=== PATIENT | female | born 1945 | race Caucasian/White ===

== ENCOUNTER 2020-12-12 19:19 | Inpatient (IN) ==
[2020-12-12] MEDS ORDERED: ONDANSETRON 4 MG/2 ML VIAL IV STA (20:04)
[2020-12-12] MEDS ORDERED: HYDROmorphone 2 MG/1 ML VIAL IV STA (20:04)
[2020-12-12] MEDS ORDERED: METHOCARBAMOL 1,000 MG/10 ML VIAL IV STA (20:05)
[2020-12-12] MEDS ORDERED: GLUCAGON 1 MG VIAL IM PRN (20:29)
[2020-12-12] MEDS ORDERED: DEXTROSE 50% 25 GM/50 ML VIAL IV PRN (20:29)
[2020-12-12] MEDS ORDERED: SIMETHICONE CHEW 125 MG TABLET PO PRN (20:29)
[2020-12-12 20:38] LABS: Basophils % 0.4 % (0.0-0.8); Eosinophils % 0.2 % (0.00-10.9); Hematocrit 35.3 VOL% (35.7-47.0); Hemoglobin 11.4 GM/DL (12.0-16.0); Immature Granulocytes % 0.6 %; Immature Granulocytes Absolute 0.06 #; Lymphocytes # 0.8 10*3/uL (1.4-4.0); Lymphocytes % 8.4 % (21.3-54.2); Mean Corpuscular HGB Conc 32.3 GM/DL (32-36); Mean Corpuscular Volume 100.9 FL (87-102); Mean Platelet Volume 9.1 FL (9.6-12.0); Monocytes % 6.3 % (1.7-12.7); Neutrophils % 84.1 % (38.7-73.9); Platelet Count 153 T/CUMM (130-400); Red Cell Distribution Width 14.2 % (9.3-17.3)
[2020-12-12 20:47] LABS: INR 1.2; PT Patient Result 12.9 SECS (10.5-12.0)
[2020-12-12 21:00] LABS: Albumin 3.4 G/DL (3.4-5.0); Bilirubin,Total 0.5 MG/DL (0.20-1.00); Calcium 8.8 MG/DL (8.5-10.1); Osmolality,Calculated 282.5 MOS/KG (273-304); Potassium 3.9 MMOL/L (3.5-5.1)
[2020-12-12] MEDS: INSULIN REGULAR 100 UNIT/ML SUBCUT SCH (23:30)
[2020-12-13 01:07] LABS: Basophils # 0.1 10*3/uL (0.0-0.2); Basophils % 0.5 % (0.0-0.8); Eosinophils % 0.2 % (0.00-10.9); Hematocrit 35.8 VOL% (35.7-47.0); Hemoglobin 11.1 GM/DL (12.0-16.0); Immature Granulocytes % 0.5 %; Immature Granulocytes Absolute 0.05 #; Lymphocytes # 1.5 10*3/uL (1.4-4.0); Lymphocytes % 14.9 % (21.3-54.2); Mean Corpuscular Volume 104.1 FL (87-102); Monocytes % 10.2 % (1.7-12.7); Neutrophils % 73.7 % (38.7-73.9); Platelet Count 177 T/CUMM (130-400); Red Blood Count 3.44 MC/CUMM (3.8-5.5); Red Cell Distribution Width 14.4 % (9.3-17.3); White Blood Count 9.8 T/CUMM (4-12)
[2020-12-13 01:29] LABS: Osmolality,Calculated 282.7 MOS/KG (273-304); Potassium 4.5 MMOL/L (3.5-5.1); Risk Ratio 2.34; VLDL Cholesterol 15.6 MG/DL
[2020-12-13] MEDS: HYDROmorphone 2 MG/1 ML VIAL IV PRN ×4 (06:18→23:03)
[2020-12-13] MEDS ORDERED: SODIUM CHLORIDE 0.9% 1,000 ML IV SCH (06:30)
[2020-12-13] MEDS: ENOXAPARIN 40 MG/0.4 ML SYRINGE SUBCUT SCH (07:03)
[2020-12-13] MEDS: ASPIRIN EC 81 MG TABLET PO SCH (08:51)
[2020-12-13] MEDS: PANTOPRAZOLE 40 MG TABLET PO SCH (08:51)
[2020-12-13] MEDS: DILTIAZEM CD 120 MG CAPSULE PO SCH (08:51)
[2020-12-13] MEDS: INSULIN REGULAR 100 UNIT/ML SUBCUT SCH ×4 (08:52→23:11)
[2020-12-13] MEDS ORDERED: LOSARTAN/HCTZ 50-12.5 MG TABLET PO SCH (09:00)
[2020-12-13] MEDS ORDERED: LOSARTAN 50 MG TABLET PO SCH (09:00)
[2020-12-13] MEDS ORDERED: VALSARTAN 160 MG TABLET PO SCH (09:00)
[2020-12-13] MEDS ORDERED: EZETIMIBE 10 MG TABLET PO SCH (09:00)
[2020-12-13] MEDS ORDERED: hydroCHLOROthiazide 12.5 MG CAPSULE PO SCH (09:00)
[2020-12-13] MEDS: LACTATED RINGERS 1,000 ML IV SCH ×2 (13:26→17:26)
[2020-12-13] MEDS: GABAPENTIN 100 MG CAPSULE PO SCH (23:02)
[2020-12-13] MEDS: ROSUVASTATIN 20 MG TABLET PO SCH (23:02)
[2020-12-14] MEDS: LACTATED RINGERS 1,000 ML IV SCH ×3 (04:00→17:44)
[2020-12-14] MEDS: ENOXAPARIN 40 MG/0.4 ML SYRINGE SUBCUT SCH (06:37)
[2020-12-14 07:14] LABS: Basophils % 0.5 % (0.0-0.8); Eosinophils # 0.3 10*3/uL (0.0-0.87); Eosinophils % 4.3 % (0.00-10.9); Hematocrit 27.2 VOL% (35.7-47.0); Hemoglobin 8.5 GM/DL (12.0-16.0); Immature Granulocytes % 0.3 %; Immature Granulocytes Absolute 0.02 #; Lymphocytes # 1.8 10*3/uL (1.4-4.0); Lymphocytes % 28.5 % (21.3-54.2); Mean Corpuscular HGB Conc 31.3 GM/DL (32-36); Mean Corpuscular Volume 102.6 FL (87-102); Mean Platelet Volume 9.5 FL (9.6-12.0); Monocytes % 13.1 % (1.7-12.7); Neutrophils % 53.3 % (38.7-73.9); Platelet Count 129 T/CUMM (130-400); Red Blood Count 2.65 MC/CUMM (3.8-5.5); Red Cell Distribution Width 14.5 % (9.3-17.3); White Blood Count 6.3 T/CUMM (4-12)
[2020-12-14 07:43] LABS: Calcium 7.9 MG/DL (8.5-10.1); Osmolality,Calculated 275.1 MOS/KG (273-304); Potassium 3.7 MMOL/L (3.5-5.1)
[2020-12-14] MEDS: INSULIN REGULAR 100 UNIT/ML SUBCUT SCH ×4 (08:30→22:35)
[2020-12-14] MEDS ORDERED: ESCITALOPRAM 10 MG TABLET PO SCH (09:00)
[2020-12-14] MEDS: AZITHROMYCIN 250 MG TABLET PO SCH (09:06)
[2020-12-14] MEDS: FOLIC ACID 1 MG TABLET PO SCH (09:06)
[2020-12-14] MEDS: HYDROmorphone 2 MG/1 ML VIAL IV PRN ×3 (09:06→20:47)
[2020-12-14] MEDS: cefTRIAXone 1,000 MG in SODIUM CHLORIDE 0.9% 100 ML IV SCH (09:06)
[2020-12-14] MEDS: GABAPENTIN 100 MG CAPSULE PO SCH ×2 (09:06→20:37)
[2020-12-14] MEDS: PANTOPRAZOLE 40 MG TABLET PO SCH (09:06)
[2020-12-14] MEDS: DILTIAZEM CD 120 MG CAPSULE PO SCH (09:06)
[2020-12-14] MEDS: ASPIRIN EC 81 MG TABLET PO SCH (09:06)
[2020-12-14] MEDS: ROSUVASTATIN 20 MG TABLET PO SCH (20:37)
[2020-12-14] MEDS: ONDANSETRON 4 MG/2 ML VIAL IV PRN (20:48)
[2020-12-15] MEDS ORDERED: ALBUTEROL/IPRATROPIUM 3 ML NEB RESP TX PRN (02:57)
[2020-12-15] MEDS: HYDROmorphone 2 MG/1 ML VIAL IV PRN (05:08)
[2020-12-15] MEDS: ONDANSETRON 4 MG/2 ML VIAL IV PRN (05:08)
[2020-12-15 06:15] LABS: Basophils % 0.4 % (0.0-0.8); Eosinophils # 0.3 10*3/uL (0.0-0.87); Eosinophils % 6.7 % (0.00-10.9); Hematocrit 25.8 VOL% (35.7-47.0); Hemoglobin 8.3 GM/DL (12.0-16.0); Immature Granulocytes % 0.2 %; Immature Granulocytes Absolute 0.01 #; Lymphocytes # 1.2 10*3/uL (1.4-4.0); Lymphocytes % 26.4 % (21.3-54.2); Mean Corpuscular HGB Conc 32.2 GM/DL (32-36); Mean Corpuscular Volume 101.2 FL (87-102); Mean Platelet Volume 9.1 FL (9.6-12.0); Monocytes % 13.2 % (1.7-12.7); Neutrophils % 53.1 % (38.7-73.9); Platelet Count 117 T/CUMM (130-400); Red Blood Count 2.55 MC/CUMM (3.8-5.5); Red Cell Distribution Width 13.9 % (9.3-17.3); White Blood Count 4.6 T/CUMM (4-12)
[2020-12-15 07:32] LABS: Calcium 8.5 MG/DL (8.5-10.1); Osmolality,Calculated 278.7 MOS/KG (273-304)
[2020-12-15] MEDS: INSULIN REGULAR 100 UNIT/ML SUBCUT SCH ×4 (08:36→22:02)
[2020-12-15] MEDS: LACTATED RINGERS 1,000 ML IV SCH ×2 (08:36)
[2020-12-15] MEDS: methylPREDNISolone SOD SUC 40 MG/1 ML VIAL IV SCH ×3 (08:45→20:20)
[2020-12-15] MEDS: KETOROLAC 30 MG/1 ML VIAL IV SCH ×3 (08:49→20:26)
[2020-12-15] MEDS: FOLIC ACID 1 MG TABLET PO SCH (09:41)
[2020-12-15] MEDS: AZITHROMYCIN 250 MG TABLET PO SCH ×2 (09:41→09:49)
[2020-12-15] MEDS: DILTIAZEM CD 120 MG CAPSULE PO SCH (09:41)
[2020-12-15] MEDS: GABAPENTIN 100 MG CAPSULE PO SCH ×2 (09:41→20:19)
[2020-12-15] MEDS: ASPIRIN EC 81 MG TABLET PO SCH (09:42)
[2020-12-15] MEDS: cefTRIAXone 1,000 MG in SODIUM CHLORIDE 0.9% 100 ML IV SCH (09:44)
[2020-12-15] MEDS: PANTOPRAZOLE 40 MG TABLET PO SCH (09:48)
[2020-12-15] MEDS ORDERED: HYDROmorphone 2 MG/1 ML VIAL IV PRN (12:04)
[2020-12-15] MEDS: ROSUVASTATIN 20 MG TABLET PO SCH (20:19)
[2020-12-16] MEDS: methylPREDNISolone SOD SUC 40 MG/1 ML VIAL IV SCH ×4 (02:04→20:40)
[2020-12-16] MEDS: KETOROLAC 30 MG/1 ML VIAL IV SCH ×4 (02:05→20:40)
[2020-12-16 06:29] LABS: Basophils % 0.1 % (0.0-0.8); Hematocrit 27.1 VOL% (35.7-47.0); Hemoglobin 8.9 GM/DL (12.0-16.0); Immature Granulocytes % 0.4 %; Immature Granulocytes Absolute 0.04 #; Lymphocytes # 0.7 10*3/uL (1.4-4.0); Lymphocytes % 7.2 % (21.3-54.2); Mean Corpuscular HGB Conc 32.8 GM/DL (32-36); Mean Corpuscular Volume 98.2 FL (87-102); Mean Platelet Volume 9.4 FL (9.6-12.0); Monocytes % 4.9 % (1.7-12.7); Neutrophils % 87.4 % (38.7-73.9); Platelet Count 142 T/CUMM (130-400); Red Blood Count 2.76 MC/CUMM (3.8-5.5); Red Cell Distribution Width 13.3 % (9.3-17.3)
[2020-12-16 06:45] LABS: Calcium 8.7 MG/DL (8.5-10.1); Osmolality,Calculated 282.5 MOS/KG (273-304)
[2020-12-16] MEDS: INSULIN REGULAR 100 UNIT/ML SUBCUT SCH ×4 (07:30→22:13)
[2020-12-16] MEDS: ESCITALOPRAM 10 MG TABLET PO SCH (09:39)
[2020-12-16] MEDS: DILTIAZEM CD 120 MG CAPSULE PO SCH (09:40)
[2020-12-16] MEDS: GABAPENTIN 100 MG CAPSULE PO SCH ×2 (09:40→20:40)
[2020-12-16] MEDS: AZITHROMYCIN 250 MG TABLET PO SCH ×3 (09:40→09:45)
[2020-12-16] MEDS: ASPIRIN EC 81 MG TABLET PO SCH (09:40)
[2020-12-16] MEDS: PANTOPRAZOLE 40 MG TABLET PO SCH (09:40)
[2020-12-16] MEDS: FOLIC ACID 1 MG TABLET PO SCH (09:40)
[2020-12-16] MEDS: cefTRIAXone 1,000 MG in SODIUM CHLORIDE 0.9% 100 ML IV SCH (09:45)
[2020-12-16] MEDS ORDERED: TUBERCULIN SKIN TEST 0.1 ML SYRINGE INTRADERM STA (16:29)
[2020-12-16] MEDS: ROSUVASTATIN 20 MG TABLET PO SCH (20:40)
[2020-12-17] MEDS: methylPREDNISolone SOD SUC 40 MG/1 ML VIAL IV SCH ×4 (02:14→21:06)
[2020-12-17] MEDS: KETOROLAC 30 MG/1 ML VIAL IV SCH ×4 (02:14→21:06)
[2020-12-17 04:11] LABS: Basophils % 0.1 % (0.0-0.8); Hematocrit 25.7 VOL% (35.7-47.0); Hemoglobin 8.3 GM/DL (12.0-16.0); Immature Granulocytes % 1.5 %; Immature Granulocytes Absolute 0.15 #; Lymphocytes # 0.6 10*3/uL (1.4-4.0); Mean Corpuscular HGB Conc 32.3 GM/DL (32-36); Mean Corpuscular Volume 99.2 FL (87-102); Mean Platelet Volume 9.1 FL (9.6-12.0); Monocytes % 4.7 % (1.7-12.7); Neutrophils % 87.7 % (38.7-73.9); Platelet Count 148 T/CUMM (130-400); Red Blood Count 2.59 MC/CUMM (3.8-5.5); Red Cell Distribution Width 13.7 % (9.3-17.3); White Blood Count 10.2 T/CUMM (4-12)
[2020-12-17 04:34] LABS: Calcium 8.4 MG/DL (8.5-10.1); Osmolality,Calculated 282.8 MOS/KG (273-304); Potassium 4.3 MMOL/L (3.5-5.1)
[2020-12-17] MEDS: INSULIN REGULAR 100 UNIT/ML SUBCUT SCH ×4 (09:36→21:05)
[2020-12-17] MEDS: ESCITALOPRAM 10 MG TABLET PO SCH (09:37)
[2020-12-17] MEDS: AZITHROMYCIN 250 MG TABLET PO SCH (09:37)
[2020-12-17] MEDS: GABAPENTIN 100 MG CAPSULE PO SCH ×2 (09:38→21:03)
[2020-12-17] MEDS: FOLIC ACID 1 MG TABLET PO SCH (09:38)
[2020-12-17] MEDS: ASPIRIN EC 81 MG TABLET PO SCH (09:38)
[2020-12-17] MEDS: DILTIAZEM CD 120 MG CAPSULE PO SCH (09:38)
[2020-12-17] MEDS: PANTOPRAZOLE 40 MG TABLET PO SCH (09:38)
[2020-12-17] MEDS: cefTRIAXone 1,000 MG in SODIUM CHLORIDE 0.9% 100 ML IV SCH (10:43)
[2020-12-17] MEDS: ALBUTEROL/IPRATROPIUM 3 ML NEB RESP TX SCH ×2 (16:54→20:00)
[2020-12-17] MEDS: ROSUVASTATIN 20 MG TABLET PO SCH (21:03)
[2020-12-18] MEDS: ALBUTEROL/IPRATROPIUM 3 ML NEB RESP TX SCH ×4 (01:30→20:14)
[2020-12-18] MEDS: KETOROLAC 30 MG/1 ML VIAL IV SCH (03:14)
[2020-12-18] MEDS: methylPREDNISolone SOD SUC 40 MG/1 ML VIAL IV SCH ×3 (03:14→18:16)
[2020-12-18 05:11] LABS: Basophils % 0.1 % (0.0-0.8); Hematocrit 27.4 VOL% (35.7-47.0); Hemoglobin 8.9 GM/DL (12.0-16.0); Immature Granulocytes % 2.1 %; Immature Granulocytes Absolute 0.19 #; Lymphocytes # 0.6 10*3/uL (1.4-4.0); Lymphocytes % 6.2 % (21.3-54.2); Mean Corpuscular HGB Conc 32.5 GM/DL (32-36); Mean Corpuscular Volume 98.9 FL (87-102); Mean Platelet Volume 8.9 FL (9.6-12.0); Monocytes % 5.5 % (1.7-12.7); Neutrophils % 86.1 % (38.7-73.9); Platelet Count 154 T/CUMM (130-400); Red Blood Count 2.77 MC/CUMM (3.8-5.5); Red Cell Distribution Width 13.7 % (9.3-17.3); White Blood Count 9.2 T/CUMM (4-12)
[2020-12-18 05:35] LABS: % Iron Saturation 12.5 % (18-50); Ferritin 166.6 ng/mL (8-252)
[2020-12-18 05:39] LABS: Calcium 8.4 MG/DL (8.5-10.1); Potassium 4.3 MMOL/L (3.5-5.1)
[2020-12-18] MEDS ORDERED: hydrALAZINE 20 MG/1 ML VIAL IV PRN (07:54)
[2020-12-18] MEDS: FERROUS SULFATE 325 MG TABLET PO SCH ×2 (09:58→20:54)
[2020-12-18] MEDS: ASPIRIN EC 81 MG TABLET PO SCH (09:58)
[2020-12-18] MEDS: GABAPENTIN 100 MG CAPSULE PO SCH ×2 (09:58→20:53)
[2020-12-18] MEDS: PANTOPRAZOLE 40 MG TABLET PO SCH (09:58)
[2020-12-18] MEDS: AZITHROMYCIN 250 MG TABLET PO SCH (09:58)
[2020-12-18] MEDS: ESCITALOPRAM 10 MG TABLET PO SCH (09:58)
[2020-12-18] MEDS: FOLIC ACID 1 MG TABLET PO SCH (09:59)
[2020-12-18] MEDS: amLODIPine 5 MG TABLET PO SCH (09:59)
[2020-12-18] MEDS: VALSARTAN 80 MG TABLET PO SCH (10:05)
[2020-12-18] MEDS: cefTRIAXone 1,000 MG in SODIUM CHLORIDE 0.9% 100 ML IV SCH (10:06)
[2020-12-18] MEDS: INSULIN REGULAR 100 UNIT/ML SUBCUT SCH ×4 (10:13→20:59)
[2020-12-18] MEDS ORDERED: MORPHINE 2 MG/1 ML SYRINGE IV PRN (11:58)
[2020-12-18] MEDS ORDERED: FUROSEMIDE 40 MG/4 ML VIAL IV ONE ×2 (12:21→21:00)
[2020-12-18 15:09] LABS: Bacteria,Urine Occasional /HPF (Few); Bilirubin,Urine Negative (Negative); Blood, Urine Small mg/dL (Negative); Glucose,Urine (UA) Negative (Negative); Ketones,Urine Negative (Negative); Mucus,Urine Occasional /LPF (Occasional); Nitrite,Urine Negative (Negative); Protein,Urine Negative; RBC,Urine <1 /HPF (0-4); Squamous Epithelial Cell,Urine Occasional /HPF (0-10); Transitional Epi Cells,Urine Occasional /HPF (<1); Urine Appearance CLEAR (Clear); Urine Color Colorless (Yellow); Urine Specific Gravity 1.004 (1.001-1.035); Urine Urobilinogen < 2.0 EU/DL (0.2-1.0)
[2020-12-18] MEDS ORDERED: FUROSEMIDE 40 MG/4 ML VIAL IV SCH (16:00)
[2020-12-18] MEDS: ROSUVASTATIN 20 MG TABLET PO SCH (20:54)
[2020-12-18] MEDS: ACETAMINOPHEN 325 MG TABLET PO PRN (20:57)
[2020-12-19] MEDS: ALBUTEROL/IPRATROPIUM 3 ML NEB RESP TX SCH ×4 (01:14→19:40)
[2020-12-19] MEDS: methylPREDNISolone SOD SUC 40 MG/1 ML VIAL IV SCH ×3 (04:01→17:27)
[2020-12-19 05:01] LABS: Basophils % 0.2 % (0.0-0.8); Hematocrit 28.4 VOL% (35.7-47.0); Hemoglobin 9.3 GM/DL (12.0-16.0); Immature Granulocytes % 4.1 %; Immature Granulocytes Absolute 0.35 #; Lymphocytes # 0.5 10*3/uL (1.4-4.0); Lymphocytes % 5.8 % (21.3-54.2); Mean Corpuscular HGB Conc 32.7 GM/DL (32-36); Mean Corpuscular Volume 98.6 FL (87-102); Monocytes % 8.1 % (1.7-12.7); NRBC # 0.03 10*3/uL; Neutrophils % 81.8 % (38.7-73.9); Platelet Count 170 T/CUMM (130-400); Red Blood Count 2.88 MC/CUMM (3.8-5.5); Red Cell Distribution Width 13.9 % (9.3-17.3); White Blood Count 8.6 T/CUMM (4-12)
[2020-12-19 05:31] LABS: Calcium 8.2 MG/DL (8.5-10.1); Osmolality,Calculated 288.7 MOS/KG (273-304); Potassium 3.9 MMOL/L (3.5-5.1)
[2020-12-19 07:16] LABS: Band Neutrophils 1 % (0-10); Lymphocytes 3 % (20-55); Segmented Neutrophils 89 % (50-85); Total Cells Counted 100
[2020-12-19 07:17] LABS: Macrocytosis Slight; Platelet Estimate Adequate
[2020-12-19] MEDS: AZITHROMYCIN 250 MG TABLET PO SCH (09:12)
[2020-12-19] MEDS: ESCITALOPRAM 10 MG TABLET PO SCH (09:12)
[2020-12-19] MEDS: VALSARTAN 80 MG TABLET PO SCH (09:12)
[2020-12-19] MEDS: FERROUS SULFATE 325 MG TABLET PO SCH ×2 (09:13→22:06)
[2020-12-19] MEDS: cefTRIAXone 1,000 MG in SODIUM CHLORIDE 0.9% 100 ML IV SCH (09:13)
[2020-12-19] MEDS: amLODIPine 5 MG TABLET PO SCH (09:13)
[2020-12-19] MEDS: ASPIRIN EC 81 MG TABLET PO SCH (09:13)
[2020-12-19] MEDS: FOLIC ACID 1 MG TABLET PO SCH (09:13)
[2020-12-19] MEDS: PANTOPRAZOLE 40 MG TABLET PO SCH (09:13)
[2020-12-19] MEDS: INSULIN REGULAR 100 UNIT/ML SUBCUT SCH ×4 (09:13→22:08)
[2020-12-19] MEDS: GABAPENTIN 100 MG CAPSULE PO SCH ×2 (09:13→22:06)
[2020-12-19] MEDS ORDERED: amLODIPine 5 MG TABLET PO ONE (09:56)
[2020-12-19] MEDS ORDERED: FUROSEMIDE 40 MG/4 ML VIAL IV ONE (12:07)
[2020-12-19] MEDS: POLYETHYLENE GLYCOL POWDER 17 GM PACK PO SCH (15:09)
[2020-12-19] MEDS: ROSUVASTATIN 20 MG TABLET PO SCH (22:04)
[2020-12-19] MEDS: ACETAMINOPHEN 325 MG TABLET PO PRN (22:05)
[2020-12-20] MEDS: ALBUTEROL/IPRATROPIUM 3 ML NEB RESP TX SCH ×2 (00:47→07:35)
[2020-12-20] MEDS: methylPREDNISolone SOD SUC 40 MG/1 ML VIAL IV SCH (03:49)
[2020-12-20 05:55] LABS: Basophils % 0.2 % (0.0-0.8); Hematocrit 27.9 VOL% (35.7-47.0); Hemoglobin 9.1 GM/DL (12.0-16.0); Immature Granulocytes % 5.4 %; Immature Granulocytes Absolute 0.45 #; Lymphocytes # 0.6 10*3/uL (1.4-4.0); Lymphocytes % 6.6 % (21.3-54.2); Mean Corpuscular HGB Conc 32.6 GM/DL (32-36); Mean Corpuscular Volume 98.6 FL (87-102); Monocytes % 9.7 % (1.7-12.7); NRBC # 0.04 10*3/uL; Neutrophils % 78.1 % (38.7-73.9); Platelet Count 170 T/CUMM (130-400); Red Blood Count 2.83 MC/CUMM (3.8-5.5); Red Cell Distribution Width 13.8 % (9.3-17.3); White Blood Count 8.4 T/CUMM (4-12)
[2020-12-20 06:09] LABS: Osmolality,Calculated 287.8 MOS/KG (273-304)
[2020-12-20 06:18] LABS: Lymphocytes 5 % (20-55); Nucleated Red Blood Cells 2 (0-5); Segmented Neutrophils 83 % (50-85); Total Cells Counted 100
[2020-12-20 06:19] LABS: Anisocytosis 1+; Hypochromasia 1+; Microcytosis 1+
[2020-12-20] MEDS ORDERED: TISSUE ADHESIVE 1 EACH APPLICATOR TOP ONE (07:02)
[2020-12-20] MEDS ORDERED: LIDOCAINE 1%/EPI INJ 20 ML VIAL ONE (07:02)
[2020-12-20] MEDS: GABAPENTIN 100 MG CAPSULE PO SCH (08:44)
[2020-12-20] MEDS: POLYETHYLENE GLYCOL POWDER 17 GM PACK PO SCH (08:44)
[2020-12-20] MEDS: ASPIRIN EC 81 MG TABLET PO SCH (08:44)
[2020-12-20] MEDS: FOLIC ACID 1 MG TABLET PO SCH (08:44)
[2020-12-20] MEDS: FERROUS SULFATE 325 MG TABLET PO SCH (08:44)
[2020-12-20] MEDS: PANTOPRAZOLE 40 MG TABLET PO SCH (08:44)
[2020-12-20] MEDS: cefTRIAXone 1,000 MG in SODIUM CHLORIDE 0.9% 100 ML IV SCH (08:45)
[2020-12-20] MEDS ORDERED: CHLORTHALIDONE 25 MG TABLET PO SCH (09:00)
[2020-12-20] MEDS ORDERED: amLODIPine 5 MG TABLET PO SCH (09:00)
[2020-12-20] MEDS ORDERED: VALSARTAN 80 MG TABLET PO SCH (09:00)
[2020-12-20] MEDS: ESCITALOPRAM 10 MG TABLET PO SCH (09:27)
[2020-12-20] MEDS: INSULIN REGULAR 100 UNIT/ML SUBCUT SCH (09:28)
[2020-12-20 11:37] VITALS: BP 131/75
== END 2020-12-20 12:36 | disposition swing bed (61) | DRG 982 ==
LOC: EDBD → EDUNIT# → N.ED 19:19 → N.EDINP 20:29 → SUATTDRO 20:29 → N.TELES 22:57
PROVIDERS: ADMIT Internal Medicine; ATTEND Internal Medicine

== ENCOUNTER 2021-01-21 14:10 | Observation (INO) ==
[2021-01-21 14:48] LABS: Basophils # 0.1 10*3/uL (0.0-0.2); Basophils % 1.1 % (0.0-0.8); Eosinophils # 0.1 10*3/uL (0.0-0.87); Eosinophils % 0.9 % (0.00-10.9); Hematocrit 33.9 VOL% (35.7-47.0); Hemoglobin 10.7 GM/DL (12.0-16.0); Immature Granulocytes % 0.5 %; Immature Granulocytes Absolute 0.03 #; Lymphocytes # 2.3 10*3/uL (1.4-4.0); Lymphocytes % 35.7 % (21.3-54.2); Mean Corpuscular HGB Conc 31.6 GM/DL (32-36); Mean Corpuscular Volume 101.2 FL (87-102); Mean Platelet Volume 8.2 FL (9.6-12.0); Monocytes % 12.9 % (1.7-12.7); Neutrophils % 48.9 % (38.7-73.9); Platelet Count 303 T/CUMM (130-400); Red Blood Count 3.35 MC/CUMM (3.8-5.5); White Blood Count 6.4 T/CUMM (4-12)
[2021-01-21 15:10] LABS: INR 1.1; PT Patient Result 12.4 SECS (10.5-12.0); Partial Thromboplastin Time 20.9 SECS (23.8-32.1)
[2021-01-21 15:17] LABS: Bilirubin,Total 0.4 MG/DL (0.20-1.00); Calcium 8.9 MG/DL (8.5-10.1); Osmolality,Calculated 270.7 MOS/KG (273-304); Potassium 4.4 MMOL/L (3.5-5.1)
[2021-01-21] MEDS ORDERED: DEXTROSE 50% 25 GM/50 ML VIAL IV PRN ×2 (19:27→19:36)
[2021-01-21] MEDS ORDERED: GLUCAGON 1 MG VIAL IM PRN (19:27)
[2021-01-21] MEDS ORDERED: ALBUTEROL 1.25 MG/3 ML NEB RESP TX STA (19:33)
[2021-01-21] MEDS ORDERED: SODIUM CHLORIDE 0.9% 1,000 ML IV SCH (21:00)
[2021-01-21 21:07] LABS: Hematocrit 32.3 VOL% (35.7-47.0); Hemoglobin 10.4 GM/DL (12.0-16.0)
[2021-01-21] MEDS: PANTOPRAZOLE 40 MG VIAL IV SCH (21:34)
[2021-01-21] MEDS ORDERED: INFLUENZA VIRUS VACCINE 0.5 ML SYRINGE IM ONE (22:16)
[2021-01-22] MEDS: ALBUTEROL 1.25 MG/3 ML NEB RESP TX SCH ×7 (00:36→23:50)
[2021-01-22] MEDS: INSULIN LISPRO 100 UNIT/ML SUBCUT SCH ×4 (01:54→20:03)
[2021-01-22 05:28] LABS: Basophils # 0.1 10*3/uL (0.0-0.2); Basophils % 1.2 % (0.0-0.8); Eosinophils # 0.1 10*3/uL (0.0-0.87); Eosinophils % 1.2 % (0.00-10.9); Hematocrit 28.9 VOL% (35.7-47.0); Hemoglobin 9.3 GM/DL (12.0-16.0); Immature Granulocytes % 0.8 %; Immature Granulocytes Absolute 0.04 #; Lymphocytes # 1.8 10*3/uL (1.4-4.0); Lymphocytes % 35.5 % (21.3-54.2); Mean Corpuscular HGB Conc 32.2 GM/DL (32-36); Mean Platelet Volume 8.4 FL (9.6-12.0); Monocytes % 17.4 % (1.7-12.7); Neutrophils % 43.9 % (38.7-73.9); Platelet Count 257 T/CUMM (130-400); Red Blood Count 2.86 MC/CUMM (3.8-5.5); Red Cell Distribution Width 14.9 % (9.3-17.3)
[2021-01-22 05:38] LABS: INR 1.1; PT Patient Result 12.2 SECS (10.5-12.0); Partial Thromboplastin Time 24.5 SECS (23.8-32.1)
[2021-01-22 05:56] LABS: Calcium 8.4 MG/DL (8.5-10.1); Osmolality,Calculated 271.4 MOS/KG (273-304); Potassium 3.9 MMOL/L (3.5-5.1); Thyroid Stimulating Hormone 1.27 uIU/ml (0.358-3.74)
[2021-01-22 06:25] LABS: Lymphocytes 31 % (20-55); Metamyelocytes 1 %; Segmented Neutrophils 53 % (50-85); Total Cells Counted 100
[2021-01-22 06:26] LABS: Platelet Estimate Normal; Schistocytes Slight
[2021-01-22] MEDS: PANTOPRAZOLE 40 MG VIAL IV SCH ×2 (09:17→20:24)
[2021-01-22 11:11] LABS: Total Protein,Body Fluid 4.1 G/DL
[2021-01-22 11:28] LABS: Lymphocytes,Pleural Fluid 88 %; Neutrophils,Pleural Fluid 10 %; RBC,Pleural Fluid > 100000 T/CUMM
[2021-01-22 12:08] LABS: Hematocrit 30.2 VOL% (35.7-47.0); Hemoglobin 9.4 GM/DL (12.0-16.0)
[2021-01-22] MEDS: ACETAMINOPHEN 325 MG TABLET PO PRN (20:24)
[2021-01-23] MEDS: INSULIN LISPRO 100 UNIT/ML SUBCUT SCH ×5 (01:46→22:16)
[2021-01-23] MEDS: ALBUTEROL 1.25 MG/3 ML NEB RESP TX SCH ×6 (04:23→23:15)
[2021-01-23 07:07] LABS: Basophils # 0.1 10*3/uL (0.0-0.2); Basophils % 1.5 % (0.0-0.8); Eosinophils # 0.1 10*3/uL (0.0-0.87); Eosinophils % 1.8 % (0.00-10.9); Hematocrit 32.1 VOL% (35.7-47.0); Hemoglobin 9.9 GM/DL (12.0-16.0); Immature Granulocytes % 0.5 %; Immature Granulocytes Absolute 0.02 #; Lymphocytes # 1.3 10*3/uL (1.4-4.0); Lymphocytes % 34.1 % (21.3-54.2); Mean Corpuscular HGB Conc 30.8 GM/DL (32-36); Mean Corpuscular Volume 102.9 FL (87-102); Mean Platelet Volume 8.3 FL (9.6-12.0); Monocytes % 17.7 % (1.7-12.7); Neutrophils % 44.4 % (38.7-73.9); Platelet Count 239 T/CUMM (130-400); Red Blood Count 3.12 MC/CUMM (3.8-5.5); Red Cell Distribution Width 15.3 % (9.3-17.3); White Blood Count 3.9 T/CUMM (4-12)
[2021-01-23 07:32] LABS: Calcium 8.6 MG/DL (8.5-10.1); Osmolality,Calculated 269.2 MOS/KG (273-304)
[2021-01-23 09:06] LABS: Eosinophils 1 % (0-10); Lymphocytes 23 % (20-55); Polychromasia Slight; Segmented Neutrophils 69 % (50-85); Total Cells Counted 100
[2021-01-23 09:07] LABS: Platelet Estimate Normal
[2021-01-23] MEDS: PANTOPRAZOLE 40 MG VIAL IV SCH ×2 (09:32→20:39)
[2021-01-23] MEDS ORDERED: ENOXAPARIN 40 MG/0.4 ML SYRINGE SUBCUT SCH (13:30)
[2021-01-23] MEDS ORDERED: CALCIUM (CARBONATE)/VITAMIN D 600 MG-400 UNIT TABLET PO SCH (14:00)
[2021-01-23] MEDS: CALCIUM (CARBONATE)/VITAMIN D 600 MG-400 UNIT TABLET PO SCH (20:37)
[2021-01-23] MEDS: ACETAMINOPHEN 325 MG TABLET PO PRN (20:38)
[2021-01-23] MEDS: ENOXAPARIN 40 MG/0.4 ML SYRINGE SUBCUT SCH (20:39)
[2021-01-24] MEDS: ALBUTEROL 1.25 MG/3 ML NEB RESP TX SCH ×5 (03:33→21:58)
[2021-01-24] MEDS: LEFLUNOMIDE 10 MG TABLET PO SCH (09:45)
[2021-01-24] MEDS: ROSUVASTATIN 20 MG TABLET PO SCH (09:45)
[2021-01-24] MEDS: PANTOPRAZOLE 40 MG VIAL IV SCH ×2 (09:45→21:14)
[2021-01-24] MEDS: CALCIUM (CARBONATE)/VITAMIN D 600 MG-400 UNIT TABLET PO SCH ×2 (09:45→21:17)
[2021-01-24] MEDS: INSULIN LISPRO 100 UNIT/ML SUBCUT SCH ×4 (09:58→21:48)
[2021-01-24] MEDS: ENOXAPARIN 40 MG/0.4 ML SYRINGE SUBCUT SCH (21:15)
[2021-01-24] MEDS: GABAPENTIN 100 MG CAPSULE PO SCH ×2 (21:17→21:51)
[2021-01-24] MEDS: FERROUS SULFATE 325 MG TABLET PO SCH ×2 (21:17→21:49)
[2021-01-25] MEDS: ALBUTEROL 1.25 MG/3 ML NEB RESP TX SCH ×4 (04:00→10:52)
[2021-01-25] MEDS ORDERED: ASPIRIN EC 81 MG TABLET PO SCH (09:00)
[2021-01-25] MEDS ORDERED: DILTIAZEM CD 120 MG CAPSULE PO SCH (09:00)
[2021-01-25] MEDS ORDERED: DULoxetine 30 MG CAPSULE PO SCH (09:00)
[2021-01-25] MEDS ORDERED: VALSARTAN 160 MG TABLET PO SCH ×2 (09:00)
[2021-01-25] MEDS ORDERED: hydroCHLOROthiazide 12.5 MG CAPSULE PO SCH ×2 (09:00)
[2021-01-25] MEDS ORDERED: CLOPIDOGREL 75 MG TABLET PO SCH (09:00)
[2021-01-25] MEDS ORDERED: PIOGLITAZONE 15 MG TABLET PO SCH (09:00)
[2021-01-25] MEDS ORDERED: VITAMIN E 400 UNIT CAPSULE PO SCH (09:00)
[2021-01-25] MEDS ORDERED: FOLIC ACID 1 MG TABLET PO SCH (09:00)
[2021-01-25] MEDS: ROSUVASTATIN 20 MG TABLET PO SCH (09:01)
[2021-01-25] MEDS: CALCIUM (CARBONATE)/VITAMIN D 600 MG-400 UNIT TABLET PO SCH (09:01)
[2021-01-25] MEDS: LEFLUNOMIDE 10 MG TABLET PO SCH (09:01)
[2021-01-25] MEDS: PANTOPRAZOLE 40 MG VIAL IV SCH (09:06)
[2021-01-25] MEDS: INSULIN LISPRO 100 UNIT/ML SUBCUT SCH (09:35)
[2021-01-25] MEDS: FERROUS SULFATE 325 MG TABLET PO SCH (09:46)
[2021-01-25] MEDS: GABAPENTIN 100 MG CAPSULE PO SCH (09:46)
[2021-01-25 11:20] VITALS: BP 125/74
== END 2021-01-25 12:15 | disposition home health service (06) ==
LOC: N.ED 14:10 → N.EDINP 14:10 → SUATTDRO 20:22 → N.EDINP 21:58 → N.2W 21:59
PROVIDERS: ADMIT Internal Medicine; ATTEND Internal Medicine